=== PATIENT | male | born 1990 | race Caucasian/White ===

== ENCOUNTER 2017-10-30 14:18 | Emergency (ER) | payer BC ==
[~2017-10-30] VITALS: Ht 193 cm; Wt 74.8 kg
[2017-10-30 14:37] VITALS: BP 147/90
[2017-10-30] MEDS ORDERED: cefTRIAXone SOD 1,000 MG VL IM ONE (15:00)
== END 2017-10-30 15:28 | disposition home or self-care (01) ==
LOC: ER 14:18
DX: A74.9 Chlamydial infection, unspecified (principal); R36.9 Urethral discharge, unspecified; F17.210 Nicotine dependence, cigarettes, uncomplicated
CPT/HCPCS: 96372; 99283; J0696

== ENCOUNTER 2018-02-28 17:35 | Emergency (ER) | payer SELFPAY ==
[~2018-02-28] VITALS: Ht 193 cm; Wt 77.1 kg
[2018-02-28 20:09] VITALS: BP 148/90
[2018-02-28] MEDS ORDERED: cefTRIAXone SOD 1,000 MG VL IM ONE (21:00)
[2018-02-28] MEDS ORDERED: LIDOCAINE 1% HCL (LOCAL ANESTH.) INJ 20ML MDV ONE (21:09)
== END 2018-02-28 21:17 | disposition home or self-care (01) ==
LOC: ER 17:35
DX: L03.211 Cellulitis of face (principal); F17.210 Nicotine dependence, cigarettes, uncomplicated
CPT/HCPCS: 96372; 99283; J0696; J2001

== ENCOUNTER 2021-11-16 21:28 | Emergency (ER) | payer BC ==
[~2021-11-16] VITALS: Ht 190.5 cm; Wt 79.4 kg
[2021-11-16 23:30] VITALS: BP 140/94
== END 2021-11-16 23:33 | disposition home or self-care (01) ==
LOC: ER 21:28
DX: U07.1 COVID-19 (principal); F17.210 Nicotine dependence, cigarettes, uncomplicated
CPT/HCPCS: 36415; 87426; 87804